=== PATIENT | male | born 1950 | race Asian ===

== ENCOUNTER 2016-11-01 13:04 | Emergency (ER) | payer OTHER ==
[~2016-11-01] VITALS: Ht 185.4 cm; Wt 115.7 kg
[2016-11-01 13:55] LABS: PLATELET COUNT 281 K/uL (142-355)
[2016-11-01 13:57] VITALS: TEMP 98.6
[2016-11-01] MEDS ORDERED: LISI20TA11 PO (13:59)
[2016-11-01] MEDS ORDERED: METOPROLOL25 M1 PO (14:00)
[2016-11-01] MEDS ORDERED: LISINOP/HCTZ1 TA2 PO (14:00)
[2016-11-01 14:02] LABS: POTASSIUM 3.5 mmol/L (3.6-5.2); SODIUM 140 mmol/L (136-145)
[2016-11-01 14:24] LABS: PARTIAL THROMBOPLASTIN TIME 24.8 SECONDS (24.5-33.6)
[2016-11-01 14:34] VITALS: BP 154/87
== END 2016-11-01 14:35 | disposition home or self-care (01) ==
LOC: ED 13:04
PROVIDERS: Family Medicine
DX: R42 Dizziness and giddiness (principal); I16.0 Hypertensive urgency; R00.1 Bradycardia, unspecified
CPT/HCPCS: 80053; 82550; 84484; 85027; 85610; 85730; 93005; 99283

== ENCOUNTER 2016-12-08 07:39 | Observation (INO) | payer OTHER ==
[~2016-12-08] VITALS: Ht 185.4 cm; Wt 117.6 kg
[~2016-12-08 07:39] MED LIST: LISI20TA11 PO; LISINOP/HCTZ1 TA2 PO; METOPROLOL25 M1 PO
[2016-12-08 09:03] LABS: PLATELET COUNT 302 K/uL (142-355)
[2016-12-08 09:24] LABS: POTASSIUM 3.3 mmol/L (3.6-5.2)
[2016-12-08 13:31] VITALS: BP 185/103; TEMP 97.7; Ht 185.4 cm; Wt 117.6 kg
[2016-12-08 16:00] VITALS: BP 185/97; TEMP 97.7
[2016-12-08 20:21] VITALS: BP 162/74; TEMP 98.4
[2016-12-09] VITALS: BP 181/105; TEMP 98.2
[2016-12-09 04:00] VITALS: BP 148/87; TEMP 98.4
[2016-12-09 06:31] LABS: PLATELET COUNT 282 K/uL (142-355)
[2016-12-09 06:48] LABS: POTASSIUM 3.4 mmol/L (3.6-5.2); SODIUM 139 mmol/L (136-145)
[2016-12-09 08:00] VITALS: BP 156/96; TEMP 98.6
[2016-12-09 12:00] VITALS: BP 174/100; TEMP 98.4
== END 2016-12-09 12:50 | disposition home or self-care (01) ==
LOC: OR 07:39 → MED/SURG 12:15
PROVIDERS: Student in an Organized Health Care Education/Training Program; ADMIT Internal Medicine
DX: I10 Essential (primary) hypertension (principal); R00.1 Bradycardia, unspecified; I44.39 Other atrioventricular block; E87.6 Hypokalemia
CPT/HCPCS: 36415; 80048; 80053; 82550; 83735; 84443; 84484; 85027; 93005; 94760; 96372; 99220; G0378; J0461; J1644; J3010

== ENCOUNTER 2020-04-20 09:42 | Emergency (ER) | payer OTHER ==
[~2020-04-20] VITALS: Ht 185.4 cm; Wt 121.6 kg
[2020-04-20 09:42] VITALS: TEMP 98.3
[2020-04-20] MEDS ORDERED: AMLODIPINE BESYLATE PO (10:18)
[2020-04-20] MEDS ORDERED: MOBIC15 MG PO (10:18)
[2020-04-20] MEDS ORDERED: LIPITOR20 MG PO (10:19)
[2020-04-20 10:33] LABS: POTASSIUM 3.5 mmol/L (3.6-5.2)
[2020-04-20 10:35] LABS: PLATELET COUNT 285 K/uL (142-355)
[2020-04-20 12:37] VITALS: BP 158/97
== END 2020-04-20 12:44 | disposition short-term general hospital (02) ==
LOC: ED 09:49
PROVIDERS: Emergency Medicine Emergency Medical Services
DX: U07.1 COVID-19 (principal); J12.89 Other viral pneumonia; R77.8 Other specified abnormalities of plasma proteins; R55 Syncope and collapse; W18.2XXA Fall in (into) shower or empty bathtub, initial encounter; Y92.89 Other specified places as the place of occurrence of the external cause
CPT/HCPCS: 80053; 83605; 83735; 83880; 84484; 85027; 87040; 87502; 87635; 93005; 96360; 96365; 96366; 96375; 99284; J0456; J0696; J2930; U0003